=== PATIENT | male | born 1985 | race Caucasian/White ===

== ENCOUNTER 2021-09-30 15:05 | Emergency (ER) | payer MEDICAID ==
[~2021-09-30] VITALS: Ht 170.2 cm; Wt 70.5 kg
[2021-09-30] MEDS ORDERED: KETOROLAC TROMETHAMINE 30 MG/ML VIAL IM ONE (16:30)
[2021-09-30] MEDS ORDERED: METHOCARBAMOL 500 MG TABLET PO ONE (16:30)
[2021-09-30 16:39] VITALS: BP 142/106
[2021-09-30] MEDS ORDERED: LIDO700A15 TP (16:50)
[2021-09-30] MEDS ORDERED: METH-812 PO (16:50)
[2021-09-30] MEDS ORDERED: NAPR-1025 PO (16:50)
== END 2021-09-30 17:01 | disposition home or self-care (01) ==
LOC: EMS 15:08
DX: S16.1XXA Strain of muscle, fascia and tendon at neck level, initial encounter (principal); G44.209 Tension-type headache, unspecified, not intractable; V49.9XXA Car occupant (driver) (passenger) injured in unspecified traffic accident, initial encounter; Y93.89 Activity, other specified; Y92.89 Other specified places as the place of occurrence of the external cause; Y99.8 Other external cause status
CPT/HCPCS: 96372; 99283; J1885